=== PATIENT | female | born 1940 | race Two or more races ===

== ENCOUNTER 2023-02-17 06:00 | Inpatient (IN) | payer OTHER ==
[2023-02-17 07:23] LABS: BASO % 0.1 % (0-2.0); EOS % 0.1 % (0-4.5); HEMATOCRIT 31.6 % (32.4-45.2); HEMOGLOBIN 11.9 GM/dL (10.7-15.3); LYMPH % 6.4 % (8-40); MCH 31.4 pg (25.7-33.7); MCHC 37.6 g/dl (32.0-36.0); MEAN CELL VOLUME 83.6 fl (80-96); NEUT % 87.4 % (42.8-82.8); PLATELET COUNT 225 10^3/uL (134-434); RBC 3.78 M/mm3 (3.60-5.2); RDW 12.8 % (11.6-15.6); WHITE BLOOD COUNT 9.3 K/mm3 (4.0-10.0)
[2023-02-17 07:28] LABS: INR 0.93 (0.83-1.09); PROTHROMBIN TIME (PATIENT) 10.8 SEC (9.7-13.0)
[2023-02-17 07:31] LABS: ACTIVATED PTT 29.2 SECONDS (25.2-36.5)
[2023-02-17 08:35] LABS: CHLORIDE 66 mmol/L (98-107)
[2023-02-17 08:38] LABS: ALBUMIN 3.9 g/dl (3.4-5.0); BLOOD UREA NITROGEN 18.7 mg/dL (7-18); CO2 26 mmol/L (21-32); GLUCOSE,RANDOM 153 mg/dL (74-106)
[2023-02-17 08:41] LABS: CREATININE 1.1 mg/dL (0.55-1.3); SGOT/AST 30 U/L (15-37); SGPT/ALT 22 U/L (13-61)
[2023-02-17 08:42] LABS: EPI CELLS 1 /uL (0-25.1); HYALINE CASTS 0 /uL (0-3.1); URINE APPEARANCE CLEAR; URINE BACTERIA 1 /uL (0-1359); URINE BILIRUBIN NEGATIVE (NEGATIVE); URINE COLOR YELLOW; URINE GLUCOSE (UA) NEGATIVE (NEGATIVE); URINE KETONE 1+ (NEGATIVE); URINE LEUK ESTERASE NEGATIVE (NEGATIVE); URINE NITRITE NEGATIVE (NEGATIVE); URINE PROTEIN 1+ (NEGATIVE); URINE RBC 60 /uL (0-23.9); URINE UROBILINOGEN 0.2 mg/dL (0.2-1.0); URINE WBC 1 /uL (0-25.8)
[2023-02-17 08:44] LABS: ALK PHOS 87 U/L (45-117); ANION GAP 15 MMOL/L (8-16); POTASSIUM 2.8 mmol/L (3.5-5.1); SODIUM 108 mmol/L (136-145); TOT PROT 7.6 g/dl (6.4-8.2)
[2023-02-17] MEDS ORDERED: POTASSIUM CHLORIDE TABS 20 MEQ TABLET.ER (FP) PO ONE ×2 (08:57→09:03)
[2023-02-17] MEDS: KCL 10 MEQ IVPB 10 MEQ/100 ML INFUS.BAG IVPB SCH ×3 (09:15→11:08)
[2023-02-17] MEDS ORDERED: SODIUM CHLORIDE 3% 500 ML/500 ML INFUS.BAG IV ONE (09:18)
[2023-02-17] MEDS ORDERED: KCL 10 MEQ IVPB 10 MEQ/100 ML INFUS.BAG IVPB ONE ×2 (09:45→11:01)
[2023-02-17] MEDS: MUPIROCIN 2% TOPICAL OINTMENT FOR DECOLONIZATION NS SCH ×2 (12:05→22:16)
[2023-02-17 12:19] LABS: URIC ACID 4.5 mg/dL (2.6-7.2)
[2023-02-17 13:11] LABS: CHLORIDE 69 mmol/L (98-107)
[2023-02-17 13:14] LABS: CO2 27 mmol/L (21-32)
[2023-02-17 13:15] LABS: BLOOD UREA NITROGEN 17.2 mg/dL (7-18); CALCIUM 9.2 mg/dL (8.5-10.1); GLUCOSE,RANDOM 136 mg/dL (74-106)
[2023-02-17 13:18] LABS: CREATININE 1.1 mg/dL (0.55-1.3)
[2023-02-17 13:22] LABS: ANION GAP 13 MMOL/L (8-16); SODIUM 109 mmol/L (136-145)
[2023-02-17 15:39] LABS: CHLORIDE 77 mmol/L (98-107); POTASSIUM 4.2 mmol/L (3.5-5.1)
[2023-02-17 15:40] LABS: CALCIUM 8.4 mg/dL (8.5-10.1)
[2023-02-17 15:41] LABS: BLOOD UREA NITROGEN 17.4 mg/dL (7-18); CO2 23 mmol/L (21-32); GLUCOSE,RANDOM 112 mg/dL (74-106)
[2023-02-17 15:44] LABS: CREATININE 1.1 mg/dL (0.55-1.3)
[2023-02-17 15:51] LABS: ANION GAP 14 MMOL/L (8-16); SODIUM 115 mmol/L (136-145)
[2023-02-17] MEDS: INSULIN SLIDING SCALE (NOVOLOG) 1 VIAL SQ SCH (18:23)
[2023-02-17 19:42] LABS: CHLORIDE 77 mmol/L (98-107); POTASSIUM 4.1 mmol/L (3.5-5.1)
[2023-02-17 19:44] LABS: BLOOD UREA NITROGEN 18.1 mg/dL (7-18); CO2 25 mmol/L (21-32); GLUCOSE,RANDOM 106 mg/dL (74-106)
[2023-02-17 19:47] LABS: CREATININE 1.1 mg/dL (0.55-1.3)
[2023-02-17 19:55] LABS: ANION GAP 13 MMOL/L (8-16); SODIUM 115 mmol/L (136-145)
[2023-02-17] MEDS ORDERED: DEXTROSE 5%-WATER - 1,000 ML IV SCH (20:00)
[2023-02-17] MEDS: MELATONIN 5 MG TABLETS PO SCH (22:16)
[2023-02-17] MEDS: CHLORHEXIDINE GLUCONATE 4% CLEANSER FOR DECOLONIZATION TP SCH (22:16)
[2023-02-17 22:36] LABS: CHLORIDE 79 mmol/L (98-107); POTASSIUM 4.1 mmol/L (3.5-5.1)
[2023-02-17 22:37] LABS: CALCIUM 8.6 mg/dL (8.5-10.1)
[2023-02-17 22:38] LABS: BLOOD UREA NITROGEN 19.1 mg/dL (7-18); CO2 26 mmol/L (21-32); GLUCOSE,RANDOM 119 mg/dL (74-106)
[2023-02-17 22:41] LABS: CREATININE 1.2 mg/dL (0.55-1.3)
[2023-02-17 22:45] LABS: ANION GAP 10 MMOL/L (8-16); SODIUM 115 mmol/L (136-145)
[2023-02-18 02:04] LABS: CHLORIDE 79 mmol/L (98-107); POTASSIUM 3.9 mmol/L (3.5-5.1)
[2023-02-18 02:07] LABS: BLOOD UREA NITROGEN 20.9 mg/dL (7-18); CALCIUM 8.5 mg/dL (8.5-10.1); CO2 25 mmol/L (21-32); GLUCOSE,RANDOM 107 mg/dL (74-106)
[2023-02-18 02:11] LABS: CREATININE 1.1 mg/dL (0.55-1.3)
[2023-02-18 02:20] LABS: ANION GAP 11 MMOL/L (8-16); SODIUM 114 mmol/L (136-145)
[2023-02-18] MEDS ORDERED: SODIUM CHLORIDE 1,000 ML IV SCH ×2 (02:30→06:38)
[2023-02-18 06:19] LABS: BLOOD UREA NITROGEN 21.5 mg/dL (7-18); CALCIUM 8.8 mg/dL (8.5-10.1); CHLORIDE 80 mmol/L (98-107); CO2 23 mmol/L (21-32); GLUCOSE,RANDOM 108 mg/dL (74-106); POTASSIUM 3.9 mmol/L (3.5-5.1)
[2023-02-18 06:21] LABS: CHOLESTEROL 199 mg/dL (50-200); CREATININE 1.2 mg/dL (0.55-1.3)
[2023-02-18 06:22] LABS: LDL CHOLESTEROL (ONLY SJRH) 80 mg/dL (5-100)
[2023-02-18 06:24] LABS: HDL CHOLESTEROL 112 mg/dL (40-60)
[2023-02-18 06:25] LABS: ANION GAP 14 MMOL/L (8-16); SODIUM 117 mmol/L (136-145)
[2023-02-18] MEDS: INSULIN SLIDING SCALE (NOVOLOG) 1 VIAL SQ SCH ×3 (06:35→17:07)
[2023-02-18 07:09] LABS: BASO % 0.8 % (0-2.0); EOS % 0.2 % (0-4.5); HEMATOCRIT 32.7 % (32.4-45.2); LYMPH % 10.7 % (8-40); MCH 31.7 pg (25.7-33.7); MCHC 36.6 g/dl (32.0-36.0); MEAN CELL VOLUME 86.6 fl (80-96); MONO % 9.5 % (3.8-10.2); NEUT % 78.8 % (42.8-82.8); PLATELET COUNT 209 10^3/uL (134-434); RBC 3.78 M/mm3 (3.60-5.2); RDW 12.9 % (11.6-15.6); WHITE BLOOD COUNT 10.6 K/mm3 (4.0-10.0)
[2023-02-18] MEDS: MUPIROCIN 2% TOPICAL OINTMENT FOR DECOLONIZATION NS SCH ×2 (09:47→21:11)
[2023-02-18 10:06] LABS: CHLORIDE 82 mmol/L (98-107); POTASSIUM 3.7 mmol/L (3.5-5.1)
[2023-02-18 10:07] LABS: CALCIUM 8.6 mg/dL (8.5-10.1)
[2023-02-18 10:08] LABS: BLOOD UREA NITROGEN 23.3 mg/dL (7-18); CO2 22 mmol/L (21-32); GLUCOSE,RANDOM 185 mg/dL (74-106)
[2023-02-18 10:11] LABS: CREATININE 1.2 mg/dL (0.55-1.3)
[2023-02-18 10:44] LABS: ANION GAP 13 MMOL/L (8-16); SODIUM 118 mmol/L (136-145)
[2023-02-18] MEDS ORDERED: ENOXAPARIN NA (PORCINE) 40 MG/0.4 ML DISP.SYRIN SQ SCH (11:15)
[2023-02-18] MEDS ORDERED: LORazepam 2 MG/ML SDV VIAL IVPUSH SCH (11:15)
[2023-02-18] MEDS ORDERED: LOSARTAN POTASSIUM 50 MG TABLET PO SCH (12:30)
[2023-02-18 12:36] LABS: CHLORIDE 82 mmol/L (98-107); POTASSIUM 3.4 mmol/L (3.5-5.1)
[2023-02-18 12:38] LABS: BLOOD UREA NITROGEN 24.3 mg/dL (7-18); CO2 24 mmol/L (21-32); GLUCOSE,RANDOM 126 mg/dL (74-106)
[2023-02-18 12:41] LABS: CREATININE 1.2 mg/dL (0.55-1.3)
[2023-02-18 12:44] LABS: ANION GAP 12 MMOL/L (8-16); SODIUM 118 mmol/L (136-145)
[2023-02-18] MEDS ORDERED: POTASSIUM CHLORIDE ORAL LIQUID 20 MEQ/15 ML PO ONE (14:15)
[2023-02-18 21:10] LABS: POTASSIUM 4.5 mmol/L (3.5-5.1)
[2023-02-18 21:11] LABS: CALCIUM 8.4 mg/dL (8.5-10.1)
[2023-02-18] MEDS: MELATONIN 5 MG TABLETS PO SCH (21:11)
[2023-02-18] MEDS: CHLORHEXIDINE GLUCONATE 4% CLEANSER FOR DECOLONIZATION TP SCH (21:11)
[2023-02-18 21:12] LABS: BLOOD UREA NITROGEN 29.6 mg/dL (7-18); MAGNESIUM 1.8 mg/dL (1.8-2.4)
[2023-02-18 21:15] LABS: CREATININE 1.5 mg/dL (0.55-1.3)
[2023-02-19] MEDS: INSULIN SLIDING SCALE (NOVOLOG) 1 VIAL SQ SCH ×3 (06:33→17:26)
[2023-02-19 07:24] LABS: HEMATOCRIT 32.7 % (32.4-45.2); HEMOGLOBIN 11.8 GM/dL (10.7-15.3); MCH 31.4 pg (25.7-33.7); MCHC 36.1 g/dl (32.0-36.0); MEAN CELL VOLUME 87.1 fl (80-96); MEAN PLT VOLUME 7.3 fl (7.5-11.1); PLATELET COUNT 233 10^3/uL (134-434); RBC 3.75 M/mm3 (3.60-5.2); RDW 13.1 % (11.6-15.6); WHITE BLOOD COUNT 9.5 K/mm3 (4.0-10.0)
[2023-02-19 07:45] LABS: POTASSIUM 4.2 mmol/L (3.5-5.1)
[2023-02-19 07:53] LABS: ALBUMIN 3.4 g/dl (3.4-5.0); CALCIUM 8.6 mg/dL (8.5-10.1)
[2023-02-19 07:54] LABS: BLOOD UREA NITROGEN 30.5 mg/dL (7-18); MAGNESIUM 2.2 mg/dL (1.8-2.4)
[2023-02-19 07:56] LABS: CREATININE 1.3 mg/dL (0.55-1.3); PHOSPHOROUS 2.1 mg/dL (2.5-4.9)
[2023-02-19 07:58] LABS: BILIRUBIN,TOTAL 0.7 mg/dL (0.2-1); TOT PROT 7.1 g/dl (6.4-8.2)
[2023-02-19] MEDS ORDERED: SODIUM CHLORIDE 1,000 ML IV SCH (08:15)
[2023-02-19] MEDS: HEPARIN NA (PORCINE) 5,000 UNITS/ML 1ML VIAL SQ SCH ×3 (10:36→21:24)
[2023-02-19] MEDS: MUPIROCIN 2% TOPICAL OINTMENT FOR DECOLONIZATION NS SCH ×2 (10:37→21:24)
[2023-02-19 15:01] LABS: POTASSIUM 4.1 mmol/L (3.5-5.1)
[2023-02-19 15:02] LABS: CALCIUM 7.8 mg/dL (8.5-10.1)
[2023-02-19 15:03] LABS: BLOOD UREA NITROGEN 18.8 mg/dL (7-18)
[2023-02-19 15:06] LABS: CREATININE 2.4 mg/dL (0.55-1.3)
[2023-02-19 16:33] LABS: POTASSIUM 4.4 mmol/L (3.5-5.1)
[2023-02-19 16:34] LABS: CALCIUM 8.5 mg/dL (8.5-10.1)
[2023-02-19 16:38] LABS: CREATININE 1.5 mg/dL (0.55-1.3)
[2023-02-19] MEDS: CHLORHEXIDINE GLUCONATE 4% CLEANSER FOR DECOLONIZATION TP SCH (21:23)
[2023-02-19] MEDS: MELATONIN 5 MG TABLETS PO SCH (21:24)
[2023-02-20] MEDS: HEPARIN NA (PORCINE) 5,000 UNITS/ML 1ML VIAL SQ SCH ×3 (06:18→22:45)
[2023-02-20] MEDS: INSULIN SLIDING SCALE (NOVOLOG) 1 VIAL SQ SCH ×3 (06:41→17:44)
[2023-02-20 07:36] LABS: BASO % 0.5 % (0-2.0); EOS % 0.5 % (0-4.5); HEMATOCRIT 27.3 % (32.4-45.2); HEMOGLOBIN 9.8 GM/dL (10.7-15.3); LYMPH % 10.4 % (8-40); MCH 31.9 pg (25.7-33.7); MEAN CELL VOLUME 88.5 fl (80-96); MEAN PLT VOLUME 7.3 fl (7.5-11.1); MONO % 8.5 % (3.8-10.2); NEUT % 80.1 % (42.8-82.8); PLATELET COUNT 213 10^3/uL (134-434); RBC 3.09 M/mm3 (3.60-5.2); RDW 13.2 % (11.6-15.6); WHITE BLOOD COUNT 10.7 K/mm3 (4.0-10.0)
[2023-02-20 07:45] LABS: POTASSIUM 4.2 mmol/L (3.5-5.1)
[2023-02-20 07:53] LABS: ALBUMIN 2.8 g/dl (3.4-5.0); PHOSPHOROUS 2.9 mg/dL (2.5-4.9)
[2023-02-20 07:54] LABS: BILIRUBIN,TOTAL 0.4 mg/dL (0.2-1); BLOOD UREA NITROGEN 35.8 mg/dL (7-18); CREATININE 1.2 mg/dL (0.55-1.3); TOT PROT 6.1 g/dl (6.4-8.2)
[2023-02-20 07:55] LABS: CALCIUM 8.3 mg/dL (8.5-10.1)
[2023-02-20 07:56] LABS: MAGNESIUM 2.1 mg/dL (1.8-2.4)
[2023-02-20] MEDS: MUPIROCIN 2% TOPICAL OINTMENT FOR DECOLONIZATION NS SCH (09:13)
[2023-02-20] MEDS: MAGNESIUM OXIDE 400 MG TABLET (FP) PO SCH ×2 (09:14→22:45)
[2023-02-20] MEDS: MELATONIN 5 MG TABLETS PO SCH (22:45)
[2023-02-21] MEDS: HEPARIN NA (PORCINE) 5,000 UNITS/ML 1ML VIAL SQ SCH ×3 (06:11→22:15)
[2023-02-21] MEDS: INSULIN SLIDING SCALE (NOVOLOG) 1 VIAL SQ SCH ×3 (06:57→16:32)
[2023-02-21] MEDS: MAGNESIUM OXIDE 400 MG TABLET (FP) PO SCH ×2 (10:04→22:14)
[2023-02-21 11:42] LABS: POTASSIUM 4.2 mmol/L (3.5-5.1)
[2023-02-21 11:50] LABS: BLOOD UREA NITROGEN 28.8 mg/dL (7-18); CALCIUM 8.7 mg/dL (8.5-10.1)
[2023-02-21 11:54] LABS: CREATININE 1.3 mg/dL (0.55-1.3)
[2023-02-21] MEDS: MELATONIN 5 MG TABLETS PO SCH (22:14)
[2023-02-22] MEDS: HEPARIN NA (PORCINE) 5,000 UNITS/ML 1ML VIAL SQ SCH ×3 (06:36→22:05)
[2023-02-22] MEDS: INSULIN SLIDING SCALE (NOVOLOG) 1 VIAL SQ SCH ×3 (06:52→16:17)
[2023-02-22] MEDS: LOSARTAN POTASSIUM 50 MG TABLET PO SCH (10:39)
[2023-02-22] MEDS: MAGNESIUM OXIDE 400 MG TABLET (FP) PO SCH ×2 (10:40→22:05)
[2023-02-22] MEDS ORDERED: BISACODYL 10 MG SUPP.RECT PR ONE (11:21)
[2023-02-22 14:49] VITALS: BMI 16.4
[2023-02-22] MEDS: ACETAMINOPHEN 325 MG TABLET (FP) PO PRN (17:41)
[2023-02-22] MEDS: MELATONIN 5 MG TABLETS PO SCH (22:05)
[2023-02-23] MEDS: HEPARIN NA (PORCINE) 5,000 UNITS/ML 1ML VIAL SQ SCH ×3 (05:39→22:10)
[2023-02-23] MEDS: INSULIN SLIDING SCALE (NOVOLOG) 1 VIAL SQ SCH ×3 (06:09→16:36)
[2023-02-23] MEDS: LOSARTAN POTASSIUM 50 MG TABLET PO SCH (10:21)
[2023-02-23 10:27] LABS: POTASSIUM 4.8 mmol/L (3.5-5.1)
[2023-02-23 10:28] LABS: CALCIUM 8.9 mg/dL (8.5-10.1)
[2023-02-23 10:30] LABS: ALBUMIN 2.9 g/dl (3.4-5.0); BLOOD UREA NITROGEN 39.4 mg/dL (7-18)
[2023-02-23 10:32] LABS: CREATININE 1.8 mg/dL (0.55-1.3)
[2023-02-23 10:35] LABS: BILIRUBIN,TOTAL 0.4 mg/dL (0.2-1)
[2023-02-23] MEDS ORDERED: SODIUM CHLORIDE 500 ML IV STA (10:40)
[2023-02-23] MEDS: MAGNESIUM OXIDE 400 MG TABLET (FP) PO SCH ×2 (11:05→22:10)
[2023-02-23] MEDS ORDERED: SODIUM CHLORIDE 1,000 ML IV SCH (15:00)
[2023-02-23] MEDS: ACETAMINOPHEN 325 MG TABLET (FP) PO PRN (17:31)
[2023-02-23] MEDS: MELATONIN 5 MG TABLETS PO SCH (22:10)
[2023-02-24] MEDS: INSULIN SLIDING SCALE (NOVOLOG) 1 VIAL SQ SCH ×3 (06:01→17:56)
[2023-02-24] MEDS: HEPARIN NA (PORCINE) 5,000 UNITS/ML 1ML VIAL SQ SCH ×3 (06:01→21:15)
[2023-02-24 08:41] LABS: POTASSIUM 3.9 mmol/L (3.5-5.1)
[2023-02-24 08:46] LABS: ALBUMIN 2.6 g/dl (3.4-5.0)
[2023-02-24 08:49] LABS: CREATININE 1.6 mg/dL (0.55-1.3)
[2023-02-24 08:51] LABS: BILIRUBIN,TOTAL 0.5 mg/dL (0.2-1); TOT PROT 6.4 g/dl (6.4-8.2)
[2023-02-24] MEDS: MAGNESIUM OXIDE 400 MG TABLET (FP) PO SCH ×2 (11:27→21:15)
[2023-02-24] MEDS: ACETAMINOPHEN 325 MG TABLET (FP) PO PRN (14:52)
[2023-02-24] MEDS ORDERED: SODIUM CHLORIDE 1,000 ML IV SCH (15:00)
[2023-02-24] MEDS ORDERED: CEFTRIAXONE 1 GM in DEXTROSE 5%-WATER - 50 ML IVPB SCH (15:00)
[2023-02-24] MEDS: CEFTRIAXONE 1 GM in DEXTROSE 5%-WATER - 50 ML IVPB SCH ×2 (15:35→15:40)
[2023-02-24] MEDS: MELATONIN 5 MG TABLETS PO SCH (21:15)
[2023-02-25] MEDS: HEPARIN NA (PORCINE) 5,000 UNITS/ML 1ML VIAL SQ SCH ×2 (06:17→13:03)
[2023-02-25] MEDS: INSULIN SLIDING SCALE (NOVOLOG) 1 VIAL SQ SCH ×3 (07:19→16:23)
[2023-02-25 08:29] LABS: BASO % 0.2 % (0-2.0); EOS % 0.5 % (0-4.5); HEMATOCRIT 23.6 % (32.4-45.2); HEMOGLOBIN 8.2 GM/dL (10.7-15.3); LYMPH % 8.8 % (8-40); MCH 31.3 pg (25.7-33.7); MCHC 34.5 g/dl (32.0-36.0); MEAN CELL VOLUME 90.7 fl (80-96); MEAN PLT VOLUME 7.1 fl (7.5-11.1); MONO % 8.4 % (3.8-10.2); NEUT % 82.1 % (42.8-82.8); PLATELET COUNT 219 10^3/uL (134-434); RBC 2.61 M/mm3 (3.60-5.2); WHITE BLOOD COUNT 11.6 K/mm3 (4.0-10.0)
[2023-02-25 09:41] LABS: ALBUMIN 2.4 g/dl (3.4-5.0); BILIRUBIN,TOTAL 0.3 mg/dL (0.2-1); BLOOD UREA NITROGEN 34.2 mg/dL (7-18); CALCIUM 8.5 mg/dL (8.5-10.1); CREATININE 1.5 mg/dL (0.55-1.3); POTASSIUM 3.8 mmol/L (3.5-5.1); TOT PROT 6.1 g/dl (6.4-8.2)
[2023-02-25] MEDS: MAGNESIUM OXIDE 400 MG TABLET (FP) PO SCH (10:05)
[2023-02-25] MEDS: CEFTRIAXONE 1 GM in DEXTROSE 5%-WATER - 50 ML IVPB SCH (11:28)
[2023-02-25 15:48] VITALS: RESP 18
[2023-02-25 18:29] VITALS: BP 127/72; PULSE 87; TEMP 98.8
== END 2023-02-25 19:55 | disposition home or self-care (01) | DRG 425 ==
LOC: JER 06:00 → JERBED 10:52 → JICU 11:29 → J5S 02-20 08:57
PROVIDERS: ADMIT Internal Medicine
DX: E87.1 Hypo-osmolality and hyponatremia (principal); G93.41 Metabolic encephalopathy; R31.9 Hematuria, unspecified; N17.9 Acute kidney failure, unspecified; E11.9 Type 2 diabetes mellitus without complications; N13.9 Obstructive and reflux uropathy, unspecified; E87.6 Hypokalemia; I10 Essential (primary) hypertension; J98.11 Atelectasis; N81.4 Uterovaginal prolapse, unspecified; N39.0 Urinary tract infection, site not specified; R64 Cachexia; F03.90 Unspecified dementia, unspecified severity, without behavioral disturbance, psychotic disturbance, mood disturbance, and anxiety; R33.8 Other retention of urine; R41.82 Altered mental status, unspecified; W18.39XA Other fall on same level, initial encounter; Y92.89 Other specified places as the place of occurrence of the external cause; Z68.1 Body mass index [BMI] 19.9 or less, adult
CPT/HCPCS: 0241U-QW; 36415; 70450-TC; 71045-TC-FY; 72125-TC; 72170-TC-FY; 74176-TC; 76775-TC; 80048; 80053; 80061; 81003; 82140; 82436; 82533; 82550; 82570; 82962; 83036; 83735; 83930; 83935; 84100; 84133; 84300; 84439; 84443; 84484; 84540; 84550; 85025; 85027; 85610; 85730; 86850; 86900; 86901; 87086; 93005; 93010; 94010; 97116-GP; 99291; J1644

== ENCOUNTER 2023-03-31 23:27 | Inpatient (IN) | payer OTHER ==
[2023-04-01] MEDS ORDERED: FAMOTIDINE 20 MG/50 ML IVPB 20 MG/50 ML MG IVPB ONE ×2 (00:32→00:52)
[2023-04-01] MEDS ORDERED: SODIUM CHLORIDE 500 ML IV STA (00:32)
[2023-04-01] MEDS ORDERED: ONDANSETRON 4 MG/2 ML VIAL IVPB ONE (00:32)
[2023-04-01] MEDS ORDERED: ONDANSETRON 4 MG/2 ML VIAL ONE (00:51)
[2023-04-01 01:08] LABS: BASO % 0.3 % (0-2.0); EOS % 0.1 % (0-4.5); HEMATOCRIT 28.5 % (32.4-45.2); HEMOGLOBIN 9.4 GM/dL (10.7-15.3); LYMPH % 14.2 % (8-40); MCH 30.4 pg (25.7-33.7); MEAN CELL VOLUME 92.1 fl (80-96); MEAN PLT VOLUME 6.7 fl (7.5-11.1); MONO % 6.1 % (3.8-10.2); NEUT % 79.3 % (42.8-82.8); PLATELET COUNT 302 10^3/uL (134-434); WHITE BLOOD COUNT 5.8 K/mm3 (4.0-10.0)
[2023-04-01 01:12] LABS: EPI CELLS 3 /uL (0-25.1); HYALINE CASTS 0 /uL (0-3.1); PH,URINE 7.5 (5.0-8.0); URINE APPEARANCE CLEAR; URINE BACTERIA 213 /uL (0-1359); URINE BILIRUBIN NEGATIVE (NEGATIVE); URINE COLOR YELLOW; URINE GLUCOSE (UA) NEGATIVE (NEGATIVE); URINE KETONE NEGATIVE (NEGATIVE); URINE LEUK ESTERASE TRACE (NEGATIVE); URINE NITRITE NEGATIVE (NEGATIVE); URINE PROTEIN 1+ (NEGATIVE); URINE RBC 33 /uL (0-23.9); URINE UROBILINOGEN 0.2 mg/dL (0.2-1.0); URINE WBC 11 /uL (0-25.8)
[2023-04-01 01:15] LABS: INR 0.95 (0.83-1.09)
[2023-04-01 01:17] LABS: ACTIVATED PTT 31.1 SECONDS (25.2-36.5)
[2023-04-01 01:28] LABS: POTASSIUM 4.3 mmol/L (3.5-5.1)
[2023-04-01 01:31] LABS: CALCIUM 8.8 mg/dL (8.5-10.1)
[2023-04-01 01:35] LABS: ALBUMIN 3.2 g/dl (3.4-5.0); CREATININE 1.3 mg/dL (0.55-1.3)
[2023-04-01 01:37] LABS: BILIRUBIN,TOTAL 0.6 mg/dL (0.2-1); TOT PROT 7.2 g/dl (6.4-8.2)
[2023-04-01 01:40] LABS: BLOOD UREA NITROGEN 21.5 mg/dL (7-18)
[2023-04-01] MEDS ORDERED: SODIUM CHLORIDE 1,000 ML IV SCH ×2 (03:00→21:15)
[2023-04-01] MEDS ORDERED: ACETAMINOPHEN INJECTION 100 ML IVPB ONE (04:27)
[2023-04-01] MEDS ORDERED: ACETAMINOPHEN 1000 MG/100 ML BAG IVPB ONE (04:27)
[2023-04-01 06:53] LABS: POTASSIUM 3.9 mmol/L (3.5-5.1)
[2023-04-01 06:56] LABS: BLOOD UREA NITROGEN 20.4 mg/dL (7-18); CALCIUM 8.1 mg/dL (8.5-10.1)
[2023-04-01 06:57] LABS: ALBUMIN 2.8 g/dl (3.4-5.0)
[2023-04-01 06:58] LABS: CREATININE 1.2 mg/dL (0.55-1.3); PHOSPHOROUS 3.1 mg/dL (2.5-4.9)
[2023-04-01 07:00] LABS: TOT PROT 6.5 g/dl (6.4-8.2)
[2023-04-01 07:01] LABS: BILIRUBIN,TOTAL 0.4 mg/dL (0.2-1)
[2023-04-01] MEDS ORDERED: ENOXAPARIN NA (PORCINE) 30 MG/0.3 ML DISP.SYRIN SQ SCH (10:00)
[2023-04-01] MEDS ORDERED: CEFTRIAXONE 1 GM in DEXTROSE 5%-WATER - 50 ML IVPB SCH (10:00)
[2023-04-01 18:16] LABS: POTASSIUM 4.6 mmol/L (3.5-5.1)
[2023-04-01 18:17] LABS: BLOOD UREA NITROGEN 24.6 mg/dL (7-18); CALCIUM 8.2 mg/dL (8.5-10.1)
[2023-04-01 18:21] LABS: CREATININE 1.8 mg/dL (0.55-1.3)
[2023-04-02] MEDS ORDERED: PROPOFOL 40 ML ONE (07:15)
[2023-04-02] MEDS ORDERED: GENTAMICIN 80MG PREMIX BAG IVPB ONE (07:48)
[2023-04-02] MEDS ORDERED: ceFAZolin SODIUM 1 GM VIAL IVPB ONE (07:48)
[2023-04-02] MEDS ORDERED: METHYLENE BLUE 50 MG/10 ML AMPUL ONE (08:06)
[2023-04-02] MEDS ORDERED: ONDANSETRON 4 MG/2 ML VIAL ONE (08:10)
[2023-04-02] MEDS ORDERED: LIDOCAINE HCL/PF 2% SDV 5ML VIAL ONE (08:10)
[2023-04-02] MEDS ORDERED: SODIUM CHLORIDE 1,000 ML IV SCH (09:05)
[2023-04-02] MEDS ORDERED: ACETAMINOPHEN 1000 MG/100 ML BAG IVPB ONE ×2 (09:14→09:15)
[2023-04-02] MEDS ORDERED: ONDANSETRON 4 MG/2 ML VIAL IVPUSH PRN (09:14)
[2023-04-02] MEDS ORDERED: LACTATED RINGERS SOLUTION 1,000 ML IV SCH (09:15)
[2023-04-02] MEDS: CEFTRIAXONE 1 GM in DEXTROSE 5%-WATER - 50 ML IVPB SCH (10:32)
[2023-04-02 13:30] LABS: HEMATOCRIT 27.5 % (32.4-45.2); MCH 31.1 pg (25.7-33.7); MCHC 32.7 g/dl (32.0-36.0); MEAN CELL VOLUME 95.2 fl (80-96); PLATELET COUNT 278 10^3/uL (134-434); RBC 2.88 M/mm3 (3.60-5.2); RDW 16.3 % (11.6-15.6)
[2023-04-02 13:51] LABS: POTASSIUM 4.3 mmol/L (3.5-5.1)
[2023-04-02 13:59] LABS: BLOOD UREA NITROGEN 20.6 mg/dL (7-18); CALCIUM 8.5 mg/dL (8.5-10.1)
[2023-04-02 14:02] LABS: CREATININE 1.7 mg/dL (0.55-1.3)
[2023-04-02 14:08] VITALS: BMI 16.4
[2023-04-02] MEDS: SODIUM CHLORIDE 0.45% 1,000 ML IV SCH (16:17)
[2023-04-02] MEDS: INSULIN SLIDING SCALE (NOVOLOG) 1 VIAL SQ SCH (22:43)
[2023-04-03] MEDS: SODIUM CHLORIDE 0.45% 1,000 ML IV SCH ×3 (06:28→22:17)
[2023-04-03] MEDS: INSULIN SLIDING SCALE (NOVOLOG) 1 VIAL SQ SCH ×4 (06:38→22:22)
[2023-04-03 08:16] LABS: POTASSIUM 4.2 mmol/L (3.5-5.1)
[2023-04-03 08:17] LABS: BLOOD UREA NITROGEN 28.9 mg/dL (7-18); CALCIUM 8.3 mg/dL (8.5-10.1)
[2023-04-03 08:18] LABS: ALBUMIN 2.7 g/dl (3.4-5.0); HEMATOCRIT 27.9 % (32.4-45.2); HEMOGLOBIN 9.1 GM/dL (10.7-15.3); MCH 30.9 pg (25.7-33.7); MCHC 32.6 g/dl (32.0-36.0); MEAN CELL VOLUME 94.8 fl (80-96); MEAN PLT VOLUME 7.2 fl (7.5-11.1); PLATELET COUNT 265 10^3/uL (134-434); RBC 2.94 M/mm3 (3.60-5.2); RDW 15.9 % (11.6-15.6); WHITE BLOOD COUNT 7.6 K/mm3 (4.0-10.0)
[2023-04-03 08:21] LABS: CREATININE 1.8 mg/dL (0.55-1.3)
[2023-04-03 08:22] LABS: BILIRUBIN,TOTAL 0.3 mg/dL (0.2-1); TOT PROT 6.3 g/dl (6.4-8.2)
[2023-04-03] MEDS: CEFTRIAXONE 1 GM in DEXTROSE 5%-WATER - 50 ML IVPB SCH (09:41)
[2023-04-03] MEDS: ENOXAPARIN NA (PORCINE) 30 MG/0.3 ML DISP.SYRIN SQ SCH (09:42)
[2023-04-04] MEDS: INSULIN SLIDING SCALE (NOVOLOG) 1 VIAL SQ SCH ×4 (06:16→21:15)
[2023-04-04 08:33] LABS: BASO % 0.4 % (0-2.0); EOS % 1.1 % (0-4.5); HEMATOCRIT 29.1 % (32.4-45.2); HEMOGLOBIN 9.4 GM/dL (10.7-15.3); LYMPH % 14.3 % (8-40); MCH 30.5 pg (25.7-33.7); MCHC 32.2 g/dl (32.0-36.0); MEAN CELL VOLUME 94.8 fl (80-96); MEAN PLT VOLUME 7.2 fl (7.5-11.1); NEUT % 74.2 % (42.8-82.8); PLATELET COUNT 280 10^3/uL (134-434); RBC 3.07 M/mm3 (3.60-5.2); RDW 16.1 % (11.6-15.6); WHITE BLOOD COUNT 7.4 K/mm3 (4.0-10.0)
[2023-04-04 08:55] LABS: POTASSIUM 4.2 mmol/L (3.5-5.1)
[2023-04-04 08:59] LABS: ALBUMIN 2.8 g/dl (3.4-5.0); BLOOD UREA NITROGEN 31.8 mg/dL (7-18); CALCIUM 8.5 mg/dL (8.5-10.1)
[2023-04-04] MEDS: ENOXAPARIN NA (PORCINE) 30 MG/0.3 ML DISP.SYRIN SQ SCH (09:01)
[2023-04-04] MEDS: PIPERACILLIN/TAZOB 2.25 GM 2.25 GM in DEXTROSE 5%-WATER - 50 ML IVPB SCH ×2 (09:02→17:42)
[2023-04-04 09:03] LABS: CREATININE 1.8 mg/dL (0.55-1.3)
[2023-04-04 09:05] LABS: BILIRUBIN,TOTAL 0.9 mg/dL (0.2-1); TOT PROT 6.5 g/dl (6.4-8.2)
[2023-04-04] MEDS: SODIUM CHLORIDE 0.45% 1,000 ML IV SCH (15:04)
[2023-04-05] MEDS: SODIUM CHLORIDE 0.45% 1,000 ML IV SCH ×2 (02:02→16:17)
[2023-04-05] MEDS: PIPERACILLIN/TAZOB 2.25 GM 2.25 GM in DEXTROSE 5%-WATER - 50 ML IVPB SCH ×3 (02:03→08:46)
[2023-04-05 08:07] LABS: POTASSIUM 4.6 mmol/L (3.5-5.1)
[2023-04-05 08:09] LABS: BLOOD UREA NITROGEN 32.9 mg/dL (7-18)
[2023-04-05 08:11] LABS: CREATININE 1.9 mg/dL (0.55-1.3)
[2023-04-05 08:13] LABS: BILIRUBIN,TOTAL 0.5 mg/dL (0.2-1); TOT PROT 7.3 g/dl (6.4-8.2)
[2023-04-05] MEDS: INSULIN SLIDING SCALE (NOVOLOG) 1 VIAL SQ SCH ×4 (08:15→21:59)
[2023-04-05] MEDS: ENOXAPARIN NA (PORCINE) 30 MG/0.3 ML DISP.SYRIN SQ SCH (10:04)
[2023-04-06] MEDS: INSULIN SLIDING SCALE (NOVOLOG) 1 VIAL SQ SCH ×4 (06:52→21:32)
[2023-04-06 08:46] LABS: HEMATOCRIT 31.1 % (32.4-45.2); HEMOGLOBIN 10.3 GM/dL (10.7-15.3); MCH 30.8 pg (25.7-33.7); MCHC 33.1 g/dl (32.0-36.0); MEAN PLT VOLUME 6.8 fl (7.5-11.1); PLATELET COUNT 314 10^3/uL (134-434); RBC 3.34 M/mm3 (3.60-5.2); RDW 16.4 % (11.6-15.6); WHITE BLOOD COUNT 8.3 K/mm3 (4.0-10.0)
[2023-04-06 09:12] LABS: POTASSIUM 4.1 mmol/L (3.5-5.1)
[2023-04-06 09:13] LABS: BLOOD UREA NITROGEN 31.5 mg/dL (7-18)
[2023-04-06 09:16] LABS: CREATININE 1.7 mg/dL (0.55-1.3)
[2023-04-06] MEDS ORDERED: ACETAMINOPHEN 1000 MG/100 ML BAG IVPB ONE (14:45)
[2023-04-06] MEDS: SODIUM CHLORIDE 0.45% 1,000 ML IV SCH (14:48)
[2023-04-06] MEDS ORDERED: traMADol HCL 50 MG TABLET PO ONE (16:32)
[2023-04-06] MEDS: LIDOCAINE 5% TOPICAL PATCH TP SCH (17:22)
[2023-04-06] MEDS: LIDOCAINE PATCH REMOVAL MC SCH (21:33)
[2023-04-06] MEDS: ESTROGENS,CONJUGATE VAGINAL CR 30 GM TUBE VG SCH (21:33)
[2023-04-07] MEDS: SODIUM CHLORIDE 0.45% 1,000 ML IV SCH ×3 (05:30→21:26)
[2023-04-07] MEDS: INSULIN SLIDING SCALE (NOVOLOG) 1 VIAL SQ SCH ×4 (06:06→21:31)
[2023-04-07 07:55] LABS: POTASSIUM 4.6 mmol/L (3.5-5.1)
[2023-04-07 07:57] LABS: CALCIUM 8.4 mg/dL (8.5-10.1)
[2023-04-07 07:58] LABS: BLOOD UREA NITROGEN 33.5 mg/dL (7-18); MAGNESIUM 2.1 mg/dL (1.8-2.4)
[2023-04-07 08:01] LABS: CREATININE 1.7 mg/dL (0.55-1.3); PHOSPHOROUS 3.3 mg/dL (2.5-4.9)
[2023-04-07] MEDS ORDERED: INSULIN (NOVOLOG) ASPART 100 UNITS/ML 10ML VIAL ONE ×2 (09:38→21:00)
[2023-04-07] MEDS: LIDOCAINE 5% TOPICAL PATCH TP SCH (09:56)
[2023-04-07] MEDS ORDERED: PIPERACILLIN/TAZOB 3.375 GM 3.375 GM in DEXTROSE 5%-WATER - 50 ML IVPB SCH (15:15)
[2023-04-07] MEDS: PIPERACILLIN/TAZOB 3.375 GM 3.375 GM in DEXTROSE 5%-WATER - 50 ML IVPB SCH ×2 (15:49→19:06)
[2023-04-07] MEDS ORDERED: ACETAMINOPHEN 325 MG TABLET (FP) PO PRN (15:49)
[2023-04-07 16:34] LABS: BASO % 0.2 % (0-2.0); EOS % 0.1 % (0-4.5); HEMATOCRIT 28.6 % (32.4-45.2); HEMOGLOBIN 9.5 GM/dL (10.7-15.3); LYMPH % 3.8 % (8-40); MCH 30.9 pg (25.7-33.7); MCHC 33.3 g/dl (32.0-36.0); MEAN CELL VOLUME 92.9 fl (80-96); MEAN PLT VOLUME 6.7 fl (7.5-11.1); MONO % 7.4 % (3.8-10.2); NEUT % 88.5 % (42.8-82.8); PLATELET COUNT 318 10^3/uL (134-434); RBC 3.08 M/mm3 (3.60-5.2); RDW 16.3 % (11.6-15.6); WHITE BLOOD COUNT 11.4 K/mm3 (4.0-10.0)
[2023-04-07 16:38] LABS: EPI CELLS >36 /uL (0-25.1); HYALINE CASTS 2 /uL (0-3.1); PH,URINE 5.5 (5.0-8.0); URINE APPEARANCE CLEAR; URINE BACTERIA 27 /uL (0-1359); URINE BILIRUBIN NEGATIVE (NEGATIVE); URINE COLOR YELLOW; URINE GLUCOSE (UA) NEGATIVE (NEGATIVE); URINE KETONE NEGATIVE (NEGATIVE); URINE LEUK ESTERASE 1+ (NEGATIVE); URINE NITRITE NEGATIVE (NEGATIVE); URINE PROTEIN 1+ (NEGATIVE); URINE RBC 151 /uL (0-23.9); URINE UROBILINOGEN 0.2 mg/dL (0.2-1.0); URINE WBC 103 /uL (0-25.8)
[2023-04-07 16:48] LABS: POTASSIUM 4.2 mmol/L (3.5-5.1)
[2023-04-07 16:49] LABS: CALCIUM 8.7 mg/dL (8.5-10.1)
[2023-04-07 16:50] LABS: BLOOD UREA NITROGEN 31.4 mg/dL (7-18)
[2023-04-07 16:53] LABS: CREATININE 1.5 mg/dL (0.55-1.3)
[2023-04-07] MEDS: ESTROGENS,CONJUGATE VAGINAL CR 30 GM TUBE VG SCH (21:27)
[2023-04-07] MEDS: LIDOCAINE PATCH REMOVAL MC SCH (21:27)
[2023-04-08] MEDS: PIPERACILLIN/TAZOB 3.375 GM 3.375 GM in DEXTROSE 5%-WATER - 50 ML IVPB SCH ×2 (01:45→09:52)
[2023-04-08] MEDS: INSULIN SLIDING SCALE (NOVOLOG) 1 VIAL SQ SCH ×4 (06:26→22:39)
[2023-04-08 08:31] LABS: HEMATOCRIT 25.8 % (32.4-45.2); HEMOGLOBIN 8.6 GM/dL (10.7-15.3); MCH 31.6 pg (25.7-33.7); MCHC 33.2 g/dl (32.0-36.0); MEAN CELL VOLUME 95.1 fl (80-96); MEAN PLT VOLUME 7.4 fl (7.5-11.1); PLATELET COUNT 301 10^3/uL (134-434); RBC 2.71 M/mm3 (3.60-5.2); RDW 16.1 % (11.6-15.6); WHITE BLOOD COUNT 8.9 K/mm3 (4.0-10.0)
[2023-04-08 08:45] LABS: POTASSIUM 4.3 mmol/L (3.5-5.1)
[2023-04-08 08:48] LABS: CALCIUM 8.6 mg/dL (8.5-10.1)
[2023-04-08 08:49] LABS: BLOOD UREA NITROGEN 31.2 mg/dL (7-18)
[2023-04-08 08:51] LABS: CREATININE 1.7 mg/dL (0.55-1.3)
[2023-04-08] MEDS: LIDOCAINE 5% TOPICAL PATCH TP SCH (09:50)
[2023-04-08] MEDS: ENOXAPARIN NA (PORCINE) 30 MG/0.3 ML DISP.SYRIN SQ SCH (09:51)
[2023-04-08] MEDS: SODIUM CHLORIDE 0.45% 1,000 ML IV SCH (16:30)
[2023-04-08] MEDS ORDERED: INSULIN (NOVOLOG) ASPART 100 UNITS/ML 10ML VIAL ONE (16:52)
[2023-04-08] MEDS: PIPERACILLIN/TAZOB 2.25 GM 2.25 GM in DEXTROSE 5%-WATER - 50 ML IVPB SCH (18:12)
[2023-04-08] MEDS: ESTROGENS,CONJUGATE VAGINAL CR 30 GM TUBE VG SCH (22:38)
[2023-04-08] MEDS: LIDOCAINE PATCH REMOVAL MC SCH (22:39)
[2023-04-09] MEDS: PIPERACILLIN/TAZOB 2.25 GM 2.25 GM in DEXTROSE 5%-WATER - 50 ML IVPB SCH ×3 (02:41→17:40)
[2023-04-09] MEDS: INSULIN SLIDING SCALE (NOVOLOG) 1 VIAL SQ SCH ×4 (06:49→22:54)
[2023-04-09] MEDS: SODIUM CHLORIDE 0.45% 1,000 ML IV SCH (06:49)
[2023-04-09 09:42] LABS: POTASSIUM 4.3 mmol/L (3.5-5.1)
[2023-04-09 09:51] LABS: CALCIUM 8.3 mg/dL (8.5-10.1)
[2023-04-09 09:54] LABS: BLOOD UREA NITROGEN 32.8 mg/dL (7-18)
[2023-04-09 09:57] LABS: CREATININE 1.7 mg/dL (0.55-1.3)
[2023-04-09] MEDS: LIDOCAINE 5% TOPICAL PATCH TP SCH (10:46)
[2023-04-09] MEDS: SODIUM CHLORIDE 500 ML IV SCH (12:10)
[2023-04-09] MEDS ORDERED: FENTANYL CITRATE/PF 50 MCG/ML VIAL ONE (12:35)
[2023-04-09] MEDS ORDERED: MIDAZOLAM HCL 2 MG/2 ML SINGLE DOSE VIAL ONE (12:35)
[2023-04-09] MEDS ORDERED: MIDAZOLAM HCL 2 MG/2 ML SINGLE DOSE VIAL IVPUSH ONE ×2 (12:45→13:05)
[2023-04-09] MEDS ORDERED: FENTANYL CITRATE/PF 50 MCG/ML VIAL IVPUSH ONE ×2 (12:45→13:05)
[2023-04-09] MEDS ORDERED: INSULIN (NOVOLOG) ASPART 100 UNITS/ML 10ML VIAL ONE (17:13)
[2023-04-09] MEDS: LIDOCAINE PATCH REMOVAL MC SCH (22:53)
[2023-04-09] MEDS: ESTROGENS,CONJUGATE VAGINAL CR 30 GM TUBE VG SCH (22:54)
[2023-04-10] MEDS: PIPERACILLIN/TAZOB 2.25 GM 2.25 GM in DEXTROSE 5%-WATER - 50 ML IVPB SCH ×3 (01:47→17:00)
[2023-04-10] MEDS: INSULIN SLIDING SCALE (NOVOLOG) 1 VIAL SQ SCH ×4 (05:59→23:27)
[2023-04-10] MEDS: LIDOCAINE 5% TOPICAL PATCH TP SCH (09:26)
[2023-04-10 09:48] LABS: BASO % 0.6 % (0-2.0); EOS % 1.4 % (0-4.5); HEMATOCRIT 29.3 % (32.4-45.2); HEMOGLOBIN 9.9 GM/dL (10.7-15.3); LYMPH % 20.5 % (8-40); MCH 31.2 pg (25.7-33.7); MCHC 33.8 g/dl (32.0-36.0); MEAN CELL VOLUME 92.4 fl (80-96); MEAN PLT VOLUME 6.9 fl (7.5-11.1); MONO % 8.6 % (3.8-10.2); NEUT % 68.9 % (42.8-82.8); PLATELET COUNT 406 10^3/uL (134-434); RBC 3.17 M/mm3 (3.60-5.2); RDW 16.2 % (11.6-15.6); RETICULOCYTES 2.79 % (0.5-1.5); WHITE BLOOD COUNT 8.2 K/mm3 (4.0-10.0)
[2023-04-10 10:11] LABS: POTASSIUM 4.8 mmol/L (3.5-5.1)
[2023-04-10 10:17] LABS: BLOOD UREA NITROGEN 27.8 mg/dL (7-18)
[2023-04-10 10:20] LABS: CREATININE 1.6 mg/dL (0.55-1.3)
[2023-04-10] MEDS ORDERED: INSULIN (NOVOLOG) ASPART 100 UNITS/ML 10ML VIAL ONE (10:58)
[2023-04-10] MEDS: SODIUM CHLORIDE 500 ML IV SCH (19:17)
[2023-04-10] MEDS: TAMSULOSIN HCL 0.4 MG CAP PO SCH (23:09)
[2023-04-10] MEDS: LIDOCAINE PATCH REMOVAL MC SCH (23:27)
[2023-04-10] MEDS: ESTROGENS,CONJUGATE VAGINAL CR 30 GM TUBE VG SCH (23:27)
[2023-04-11] MEDS: PIPERACILLIN/TAZOB 2.25 GM 2.25 GM in DEXTROSE 5%-WATER - 50 ML IVPB SCH ×2 (02:22→09:00)
[2023-04-11] MEDS: INSULIN SLIDING SCALE (NOVOLOG) 1 VIAL SQ SCH ×4 (06:37→21:57)
[2023-04-11] MEDS: LIDOCAINE 5% TOPICAL PATCH TP SCH (08:59)
[2023-04-11 10:37] LABS: BLOOD UREA NITROGEN 34.4 mg/dL (7-18); CALCIUM 9.1 mg/dL (8.5-10.1); POTASSIUM 4.4 mmol/L (3.5-5.1)
[2023-04-11] MEDS ORDERED: ACETAMINOPHEN 325 MG TABLET (FP) PO PRN (12:53)
[2023-04-11] MEDS: TAMSULOSIN HCL 0.4 MG CAP PO SCH (21:57)
[2023-04-11] MEDS: LIDOCAINE PATCH REMOVAL MC SCH (21:57)
[2023-04-11] MEDS: ESTROGENS,CONJUGATE VAGINAL CR 30 GM TUBE VG SCH (22:25)
[2023-04-12] MEDS: INSULIN SLIDING SCALE (NOVOLOG) 1 VIAL SQ SCH ×4 (06:54→22:32)
[2023-04-12 09:18] LABS: POTASSIUM 4.5 mmol/L (3.5-5.1)
[2023-04-12 09:20] LABS: BLOOD UREA NITROGEN 39.3 mg/dL (7-18); CALCIUM 8.6 mg/dL (8.5-10.1)
[2023-04-12] MEDS: LIDOCAINE 5% TOPICAL PATCH TP SCH (09:23)
[2023-04-12 09:24] LABS: CREATININE 1.9 mg/dL (0.55-1.3)
[2023-04-12 10:49] LABS: CALCIUM 8.8 mg/dL (8.5-10.1)
[2023-04-12] MEDS ORDERED: INSULIN (NOVOLOG) ASPART 100 UNITS/ML 10ML VIAL ONE ×3 (13:00→16:49)
[2023-04-12] MEDS: TAMSULOSIN HCL 0.4 MG CAP PO SCH (22:19)
[2023-04-12] MEDS: ESTROGENS,CONJUGATE VAGINAL CR 30 GM TUBE VG SCH (22:20)
[2023-04-12] MEDS: LIDOCAINE PATCH REMOVAL MC SCH (22:20)
[2023-04-13] MEDS: INSULIN SLIDING SCALE (NOVOLOG) 1 VIAL SQ SCH ×4 (06:16→23:16)
[2023-04-13 07:37] LABS: POTASSIUM 4.2 mmol/L (3.5-5.1)
[2023-04-13 07:41] LABS: CALCIUM 8.8 mg/dL (8.5-10.1)
[2023-04-13 07:42] LABS: BLOOD UREA NITROGEN 42.4 mg/dL (7-18)
[2023-04-13 07:45] LABS: CREATININE 1.7 mg/dL (0.55-1.3)
[2023-04-13] MEDS: LIDOCAINE 5% TOPICAL PATCH TP SCH (10:13)
[2023-04-13] MEDS: TAMSULOSIN HCL 0.4 MG CAP PO SCH (23:08)
[2023-04-13] MEDS: LIDOCAINE PATCH REMOVAL MC SCH (23:08)
[2023-04-13] MEDS: ESTROGENS,CONJUGATE VAGINAL CR 30 GM TUBE VG SCH (23:09)
[2023-04-14] MEDS: INSULIN SLIDING SCALE (NOVOLOG) 1 VIAL SQ SCH ×4 (06:10→22:06)
[2023-04-14 07:33] LABS: HEMATOCRIT 27.6 % (32.4-45.2); MCH 30.7 pg (25.7-33.7); MCHC 32.7 g/dl (32.0-36.0); MEAN CELL VOLUME 93.8 fl (80-96); MEAN PLT VOLUME 6.8 fl (7.5-11.1); PLATELET COUNT 408 10^3/uL (134-434); RBC 2.95 M/mm3 (3.60-5.2); RDW 15.8 % (11.6-15.6); WHITE BLOOD COUNT 8.5 K/mm3 (4.0-10.0)
[2023-04-14 08:00] LABS: POTASSIUM 4.5 mmol/L (3.5-5.1)
[2023-04-14 08:04] LABS: CALCIUM 8.6 mg/dL (8.5-10.1)
[2023-04-14 08:08] LABS: CREATININE 1.5 mg/dL (0.55-1.3)
[2023-04-14] MEDS: LIDOCAINE 5% TOPICAL PATCH TP SCH (09:46)
[2023-04-14] MEDS: LIDOCAINE PATCH REMOVAL MC SCH (22:06)
[2023-04-14] MEDS: ESTROGENS,CONJUGATE VAGINAL CR 30 GM TUBE VG SCH (22:06)
[2023-04-14] MEDS: TAMSULOSIN HCL 0.4 MG CAP PO SCH (22:06)
[2023-04-15] MEDS: INSULIN SLIDING SCALE (NOVOLOG) 1 VIAL SQ SCH ×3 (06:31→17:44)
[2023-04-15 07:31] LABS: POTASSIUM 4.5 mmol/L (3.5-5.1)
[2023-04-15 07:32] LABS: CALCIUM 8.8 mg/dL (8.5-10.1)
[2023-04-15 07:33] LABS: BLOOD UREA NITROGEN 41.4 mg/dL (7-18)
[2023-04-15 07:36] LABS: CREATININE 1.5 mg/dL (0.55-1.3)
[2023-04-15] MEDS: LIDOCAINE 5% TOPICAL PATCH TP SCH (09:03)
[2023-04-15 09:07] VITALS: RESP 18
[2023-04-15] MEDS ORDERED: INSULIN (NOVOLOG) ASPART 100 UNITS/ML 10ML VIAL ONE ×3 (11:24→16:43)
[2023-04-15 15:29] VITALS: BP 137/76; PULSE 99; TEMP 98.5
== END 2023-04-15 18:00 | disposition home or self-care (01) | DRG 443 ==
LOC: JER 23:27 → JERBED 04-01 03:06 → J7W 04-01 07:26 → OBSVTOIN 04-03 19:40
PROVIDERS: ADMIT Internal Medicine; ATTEND Internal Medicine
PROC: BT1FZZZ Fluoroscopy of Left Kidney, Ureter and Bladder (ICD-10-PCS; 2023-04-02 07:30)
PROC: 0TJ98ZZ Inspection of Ureter, Via Natural or Artificial Opening Endoscopic (ICD-10-PCS; 2023-04-02 07:30)
PROC: 0T788DZ Dilation of Bilateral Ureters with Intraluminal Device, Via Natural or Artificial Opening Endoscopic (ICD-10-PCS; principal; 2023-04-03)
PROC: 0UHG7GZ Insertion of Pessary into Vagina, Via Natural or Artificial Opening (ICD-10-PCS; 2023-04-06)
PROC: 0T9030Z Drainage of Right Kidney with Drainage Device, Percutaneous Approach (ICD-10-PCS; 2023-04-09)
PROC: BT01ZZZ Plain Radiography of Right Kidney (ICD-10-PCS; 2023-04-09)
DX: N13.2 Hydronephrosis with renal and ureteral calculous obstruction (principal); I10 Essential (primary) hypertension; E11.9 Type 2 diabetes mellitus without complications; N17.9 Acute kidney failure, unspecified; E87.1 Hypo-osmolality and hyponatremia; E43 Unspecified severe protein-calorie malnutrition; Z68.1 Body mass index [BMI] 19.9 or less, adult; D64.9 Anemia, unspecified; D25.9 Leiomyoma of uterus, unspecified; R33.8 Other retention of urine; J47.9 Bronchiectasis, uncomplicated; N81.3 Complete uterovaginal prolapse; M17.12 Unilateral primary osteoarthritis, left knee; N39.0 Urinary tract infection, site not specified; B96.5 Pseudomonas (aeruginosa) (mallei) (pseudomallei) as the cause of diseases classified elsewhere; R51.9 Headache, unspecified
CPT/HCPCS: 36415; 50432; 70470-TC; 71045-TC-FY; 73560-TC-LT-FY; 74018-TC-FY; 74177-TC; 76000-TC-FY; 76775-TC; 76856-TC; 80048; 80053; 81003; 82607; 82728; 82746; 82962; 83540; 83550; 83605; 83735; 83930; 83935; 84100; 84300; 84484; 85025; 85027; 85045; 85610; 85730; 86850; 86900; 86901; 87040; 87070; 87075; 87086; 87102; 87116; 87186; 87205; 87206; 87210; 87635; 93005; 93010; 94760; 97116-GP; 97162-GP; 99291; 99292; C1729; C1758; C2617; G0378; J1410; Q9967; Q9968